=== PATIENT | female | born 1995 ===

== ENCOUNTER 2020-02-16 09:47 | Inpatient (IN) | payer OTHER ==
[~2020-02-16] VITALS: Ht 162.6 cm; Wt 64.9 kg
[2020-02-16] MEDS ORDERED: PRENATABS RX T1 EACH PO (10:20)
[2020-02-16] MEDS ORDERED: FOLIC ACID0.8 M1 PO (10:20)
== END 2020-02-18 14:16 | DRG 807 ==
LOC: LDR 09:47 → OB/GYN 23:33
PROVIDERS: ADMIT Obstetrics & Gynecology; ATTEND Obstetrics & Gynecology
PROC: 10E0XZZ Delivery of Products of Conception, External Approach (ICD-10-PCS; principal; 2020-02-16)
PROC: 4A0HXFZ Measurement of Products of Conception, Cardiac Rhythm, External Approach (ICD-10-PCS; 2020-02-16)
DX: O80 Encounter for full-term uncomplicated delivery (principal); Z37.0 Single live birth; Z3A.39 39 weeks gestation of pregnancy